=== PATIENT | female | born 1980 | race Caucasian/White ===

== ENCOUNTER 2018-10-16 16:08 | Emergency (ER) | payer SELFPAY ==
[2018-10-16 16:34] VITALS: TEMP 98.4
--- NOTE | 2018-10-16 17:06 | RAD ---
EXAM DESCRIPTION: Lumbar Spine 3 Views CLINICAL HISTORY: 38 years Female, low bakc pain COMPARISON: None available. FINDINGS: The vertebral body heights are well-maintained with no acute compression deformity. The intervertebral disc spaces are well preserved. No evidence of spondylolysis or spondylolisthesis. The visualized prevertebral and paravertebral soft tissues appear grossly unremarkable. IMPRESSION: Normal radiographs of the lumbar spine. Electronically signed by: Alfonzo Reese MD 10/16/2018 5:04 PM [facility]
--- NOTE | 2018-10-16 17:08 | US ---
EXAM DESCRIPTION: Pelvic,Non-OB CLINICAL HISTORY: 38 years Female, pelvic mass with dub COMPARISON: None. FINDINGS: The uterus measures 15.6 x 13.6 x 9.3 cm. There is a 13.5 x 9.3 cm heterogenous mass in the anterior aspect of the body most likely representing a fibroid. The endometrial stripe is displaced and measures 3.6 mm in thickness. Right ovary measures 4.5 x 2.5 x 3.1 cm and the left ovary measures 4.3 x 2.8 x 2.6 cm. Both ovaries appear normal. No free fluid. IMPRESSION: 13.5 x 9.3 cm heterogeneous mass is noted in the anterior aspect of the uterine body most likely representing a fibroid. Electronically signed by: Alfonzo Reese MD 10/16/2018 5:05 PM [facility]
[2018-10-16] MEDS ORDERED: IBUPROFEN 200 MG TAB PO ONE (17:14)
[2018-10-16] MEDS ORDERED: traMADol HCL 50 MG TAB PO ONE (17:14)
[2018-10-16 17:15] VITALS: BP 127/87; O2SAT 97
--- NOTE | 2018-10-16 17:17 | ED.PDOC ---
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 The patient has pain at the right sacroiliac joint that has been present for the last couple of months. She has tenderness to palpation over the area. There is a palpable fluid psychotherapy. Additionally the patient has been having spotting fairly continuously for the last 5 or 6 months. She was told 5 or 6 years ago that she likely has uterine fibroids. She does have a palpable abdominal mass where the uterus would be. It is mobile. She has not had any significant weight loss. He has been quite a while since she has had a Pap smear. Timing/Duration: unsure Severity: moderate Improving Factors: nothing Worsening Factors: nothing Associated Symptoms: denies symptoms Allergies/Adverse Reactions: Allergies NO KNOWN ALLERGY Allergy (Verified 10/16/18 16:25) Home Medications: Ambulatory Orders Tramadol HCl 50 mg PO Q8HR PRN #20 tab 10/16/18 Review of Systems - Review of Systems Constitutional: States: no symptoms reported EENTM: States: no symptoms reported Respiratory: States: no symptoms reported Cardiology: States: no symptoms reported Gastrointestinal/Abdominal: States: abdominal pain Genitourinary: States: see HPI Musculoskeletal: States: back pain Skin: States: no symptoms reported Neurological: States: no symptoms reported Endocrine: States: no symptoms reported All other Systems: No Change from Baseline Past Medical History (General) - Patient Medical History Hx Seizures: No Hx Stroke: No Hx Asthma: No Hx Cardiac Disorders: No Hx Thyroid Disease: No Hx Diabetes: No Surgical History: other - Social History Hx Tobacco Use: Yes Family Medical History - Family History Mother Family History: No Known Physical Exam - Physical Exam General Appearance: Alert, Comfortable, No apparent distress Eye Exam: bilateral normal Ears, Nose, Throat: normal ENT inspection, normal pharynx Neck: full range of motion, supple Respiratory: lungs clear, normal breath sounds, no respiratory distress, no accessory muscle use Cardiovascular/Chest: normal peripheral pulses, regular rate, rhythm, no edema Peripheral Pulses: radial,right: 2+, radial,left: 2+ Gastrointestinal/Abdominal: non tender, soft, other - mass palpablesuprapubically Rectal Exam: deferred, other - pelvic exam shows a mobile cervix. No obvious mass at the cervix. No real cervical motion tenderness. Uterus is significantly enlarged and anteverted. Spotting is seen from the os. Back Exam: no CVA tenderness, other - tenderness to palpation over the right sacroiliac joint. 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 The patient appears to have a 9 x 13 cm fibroid most likely. She needs to follow-up with a harvest contractor of her choice to get what would most likely be a hysterectomy. I would recommend that she take an tqia-ynq-nisjcay iron supplement secondary to her continuous spotting due to this. She is overdue for a Pap smear. Her low back pain appears to be due to inflammation at the right sacroiliac joint. x- rays were reassuring. She can do exercises to strengthen the muscles anterior to the spine to help reduce discomfort from this such as bicycling, rowing or swimming. Some weight loss may help somewhat. Rhwf-trd-zmpghaw anti-infla mmatory such as Motrin or Aleve can also help. She'll be written additionally for some tramadol for when the pain gets at its worst. Stretching exercises can also help. Keep follow-up with gynecology for definitive care of the likely fibroid. - Results/Orders Results/Orders: transabdominal pelvic ultrasound shows a 13 x 9 cm mass most consistent with a f ibroid. X-ray lumbar spine shows no evidence of any significant subluxation or compression fracture. Departure - Departure Clinical Impression: Fibroid, Dysfunctional uterine bleeding Chronic low back pain Qualifiers: Back pain laterality: right Sciatica presence: without sciatica Qualified Code(s): M54.5 - Low back pain; G89.29 - Other chronic pain Disposition: Discharge to Home or Self Care Condition: Fair Departure Forms: ED Discharge - Pt. Copy, Patient Portal Self Enrollment Instructions: Uterine Fibroids (DC), Low Back Pain (DC), Back Exercises Diet: regular diet Activity: increase activity as tolerated Prescriptions: Tramadol HCl 50 mg PO Q8HR PRN #20 tab PRN Reason: Moderate Pain Home Medications: Ambulatory Orders Tramadol HCl 50 mg PO Q8HR PRN #20 tab 10/16/18 Additional Instructions: the patient's a 38-year-old female presenting to the emergency room secondary to low back pain and lower abdominal mass. The patient appears to have a 9 x 13 cm fibroid most likely. She needs to follow-up with a harvest contractor of her choice to get what would most likely be a hysterectomy. I would recommend that she take an epyi-bcs-xaqrwxj iron supplement secondary to her continuous spotting due to this. She is overdue for a Pap smear. Her low back pain appears to be due to inflammation at the right sacroiliac joint. x- rays were reassuring. She can do exercises to strengthen the muscles anterior to the spine to help reduce discomfort from this such as bicycling, rowing or swimming. Some weight loss may help somewhat. Zysz-ymi-rjdpmjz anti- inflammatory such as Motrin or Aleve can also help. She'll be written additionally for some tramadol for when the pain gets at its worst. Stretching exercises can also help. Keep follow-up with gynecology for definitive care of the likely fibroid.
== END 2018-10-16 17:26 | disposition home or self-care (01) ==
LOC: ER 16:08
DX: D25.9 Leiomyoma of uterus, unspecified (principal); N93.8 Other specified abnormal uterine and vaginal bleeding; M54.5 Low back pain; G89.29 Other chronic pain; Z87.891 Personal history of nicotine dependence

== ENCOUNTER 2019-03-27 14:13 | Emergency (ER) | payer SELFPAY ==
[2019-03-27] MEDS ORDERED: KETOROLAC TROMETHAMINE INJ 30 MG/ML VIAL IV ONE (14:26)
[2019-03-27] MEDS ORDERED: SODIUM CHLORIDE 0.9% 1000ML 1,000 ML IVS ONE (14:26)
[2019-03-27] MEDS ORDERED: ONDANSETRON ODT 8 MG TAB SL ONE (14:26)
--- NOTE | 2019-03-27 14:33 | ED.PDOC ---
History of Present Illness - General Chief Complaint: Problem Time Seen by Provider: 03/27/19 14:14 Source: patient Exam Limitations: no limitations - History of Present Illness Initial Comments: patient comes in today for severe pelvic cramping and vaginal bleeding. Patient has suffered with a fibroid uterus for the past several years. 2 years ago the bleeding was significant enough to require blood transfusion. Patient states she had an ultrasound performed earlier this year that showed a fibroid tumor consistent with what she been told in the past. She's been able to have it removed/hysterectomy as she does not have any financial assistance nor insurance. Patient states the bleeding started day before yesterday. She's been bleeding and changing pads approximately every 30 minutes since then. Patient states today she started feeling weak and having nausea and vomiting. Patient has been unable to keep anything down. Patient has no diarrhea but is complaining of abdominal pain. Patient states the pain feels like contractions in her uterus. This pain is the same pain she normally has with menses but much more severe. She has no fever, chills, cough or cold symptoms. She's had no diarrhea, dysuria, or hematuria. Patient does not believe she is secondary to the size of the fibroid uterus. Patient does not believe she ever had any estrogen nor hormones to try to stop the bleeding. She has no past medical history. Her past surgical history is section 2 and pyloric stenosis as a child. 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 Patient drinks alcohol 4-5 times a week. Patient has a longtime tobacco user but currently Vapes. Timing/Duration: other - this is day 3 Quality: severe, cramping Onset Location: suprapubic - pelvic Radiation: none, back Prior abdominal problems: none Improving Factors: nothing Worsening Factors: nothing Associated Symptoms: nausea/vomiting Allergies/Adverse Reactions: Allergies NO KNOWN ALLERGY Allergy (Verified 03/27/19 14:36) Review of Systems - Review of Systems Constitutional: States: weakness. Denies: chills, diaphoresis, fever EENTM: States: no symptoms reported. Denies: eye pain, ear pain, nose congestion, throat pain Respiratory: States: no symptoms reported. Denies: cough, short of breath Cardiology: States: no symptoms reported. Denies: chest pain, palpitations Gastrointestinal/Abdominal: States: abdominal pain, nausea, vomiting. Denies: constipation, diarrhea Genitourinary: States: see HPI Musculoskeletal: States: no symptoms reported Skin: States: no symptoms reported Neurological: States: no symptoms reported Past Medical History (General) - Patient Medical History Hx Seizures: No Hx Stroke: No Hx Asthma: No Hx Cardiac Disorders: No Hx Thyroid Disease: No Hx Diabetes: No - Social History Hx Tobacco Use: Yes Family Medical History - Family History Mother Family History: No Known Physical Exam - Physical Exam General Appearance: Alert, Obvious distress - lying on her side holding her abdomen Eyes, Ears, Nose, Throat Exam: PERRL/EOMI, normal ENT inspection, TMs normal, pharynx normal Neck: non-tender, full range of motion, supple, normal inspection Cardiovascular/Respiratory: regular rate, rhythm, no M/R/G, normal peripheral pulses, no JVD, normal breath sounds Gastrointestinal/Abdominal: normal bowel sounds, non tender - no tenderness to palpation no rebound or guarding , soft, mass - large palpable mass consistent with history Pelvic Exam: external exam normal, speculum exam normal, active bleeding - blood from os but slow and no clots at this time, mass - 16 week uterus Neurologic: alert, oriented x 3 Progress - Progress Progress: 03/27/19 17:06 discussed with patient and she is still bleeding. Will transfer for pot filler consult after her blood is started here. - Results/Orders Results/Orders: 03/27/19 15:31 PRBC [PACKED CELLS,LR] Stat TYPE AND SCREEN Stat Laboratory Results WBC 4.8 K/mm3 (4.8-10.8) 03/27/19 14:45 RBC 3.58 M/mm3 (4.20-5.40) L 03/27/19 14:45 Hgb 5.5 gm/dL (12.0-16.0) L* 03/27/19 14:45 Hct 19.9 % (36.0-47.0) L 03/27/19 14:45 MCV 55.6 fl (81.0-99.0) L 03/27/19 14:45 MCH 15.3 pg (27.0-31.0) L 03/27/19 14:45 MCHC 27.6 g/dL (33.0-37.0) L 03/27/19 14:45 RDW 20.6 % (11.5-14.5) H 03/27/19 14:45 Plt Count 560 K/mm3 (130-400) H 03/27/19 14:45 MPV 8.8 fl (7.40-10.4) 03/27/19 14:45 Absolute Neuts (auto) Not Reportable 03/27/19 14:45 Absolute Lymphs (auto) Not Reportable 03/27/19 14:45 Absolute Monos (auto) Not Reportable 03/27/19 14:45 Absolute Eos (auto) Not Reportable 03/27/19 14:45 Neutrophils % Not Reportable 03/27/19 14:45 Neutrophils % (Manual) 67.0 % (42.0-78.0) 03/27/19 14:45 Lymphocytes % Not Reportable 03/27/19 14:45 Lymphocytes % (Manual) 22.0 % 03/27/19 14:45 Monocytes % Not Reportable 03/27/19 14:45 Monocytes % (Manual) 4.0 % 03/27/19 14:45 Eosinophils % Not Reportable 03/27/19 14:45 Basophils % Not Reportable 03/27/19 14:45 Eosinophils 7.0 % 03/27/19 14:45 Hypochromia 3+ 03/27/19 14:45 Platelet Estimate Increased (NORMAL) 03/27/19 14:45 Poikilocytosis 1+ 03/27/19 14:45 Anisocytosis 2+ 03/27/19 14:45 Microcytosis 3+ 03/27/19 14:45 PT 9.9 SECONDS (9.0-10.9) 03/27/19 14:45 INR 0.99 (0.9-1.15) 03/27/19 14:45 PTT (SP) 21.9 SECONDS (21.8-31.6) 03/27/19 14:45 Sodium 136 mmol/L (135-145) 03/27/19 14:45 Potassium 3.8 mmol/L (3.6-5.0) 03/27/19 14:45 Chloride 105 mmol/L (101-111) 03/27/19 14:45 Carbon Dioxide 21 mmol/L (21-31) 03/27/19 14:45 Anion Gap 13.8 (12-18) 03/27/19 14:45 BUN 9 mg/dL (7-18) 03/27/19 14:45 Creatinine 0.82 mg/dL (0.6-1.3) 03/27/19 14:45 BUN/Creatinine Ratio 11.0 (10-20) 03/27/19 14:45 Random Glucose 94 mg/dL (70-105) 03/27/19 14:45 Serum Osmolality 270.4 mOsm/L (275-295) L 03/27/19 14:45 Calcium 9.2 mg/dL (8.4-10.2) 03/27/19 14:45 Total Bilirubin 0.5 mg/dL (0.2-1.0) 03/27/19 14:45 AST 17 IU/L (10-42) 03/27/19 14:45 ALT 9 IU/L (10-60) L 03/27/19 14:45 Alkaline Phosphatase 37 IU/L (42-121) L 03/27/19 14:45 Serum Total Protein 7.8 gm/dL (6.4-8.2) 03/27/19 14:45 Albumin 4.2 g/dl (3.2-5.5) 03/27/19 14:45 Globulin 3.6 gm/dL (2.3-3.5) H 03/27/19 14:45 Albumin/Globulin Ratio 1.2 (1.1-1.9) 03/27/19 14:45 Serum HCG, Qual Negative (NEGATIVE) 03/27/19 14:45 Crossmatch See Detail 03/27/19 15:31 study from Sep Patient Name: JERRICA PAK Gender: Female Date of : 1980 Referring Physician: Todd Ibarra Organization: [facility] Accession Number: [id number] Requested Date: October 16, 2018 16:29 Report Status: Final Requested Procedure: 1 Procedure Description: Pelvic,Non-OB Modality: US Findings Reporting MD: Alfonzo Reese Fellow MD: Not available Dictation Time: Video Rental Clerk: Not available Commissions Specialist Date: EXAM DESCRIPTION: Pelvic,Non-OB CLINICAL HISTORY: 38 years Female, pelvic mass with dub COMPARISON: None. FINDINGS: The uterus measures 15.6 x 13.6 x 9.3 cm. There is a 13.5 x 9.3 cm heterogenous mass in the anterior aspect of the body most likely representing a fibroid. The endometrial stripe is displaced and measures 3.6 mm in thickness. Right ovary measures 4.5 x 2.5 x 3.1 cm and the left ovary measures 4.3 x 2.8 x 2.6 cm. Both ovaries appear normal. No free fluid. IMPRESSION: 13.5 x 9.3 cm heterogeneous mass is noted in the anterior aspect of the uterine body most likely representing a fibroid. Electronically signed by: Alfonzo Reese MD 10/16/2018 5:05 PM [employer] Departure - Departure Clinical Impression: Fibroid, Dysfunctional uterine bleeding Disposition: Transfer to Hospital Condition: Fair Departure Forms: ED Discharge - Pt. Copy, Patient Portal Self Enrollment Transfer to Outside Facility - Transfer Information Accepting Facility: [facility] Reason for Transfer: specialized care not available
[2019-03-27] MEDS ORDERED: SODIUM CHLORIDE 0.9% 500ML 500 ML ONE (16:29)
[2019-03-27] MEDS ORDERED: MORPHINE SULFATE INJ 10 MG/ML VIAL IV ONE (17:21)
[2019-03-27 18:38] VITALS: BP 116/74; TEMP 98.9; O2SAT 97
== END 2019-03-27 18:25 | disposition short-term general hospital (02) ==
LOC: ER 14:13
DX: N93.8 Other specified abnormal uterine and vaginal bleeding (principal); D25.9 Leiomyoma of uterus, unspecified; R11.2 Nausea with vomiting, unspecified; F17.290 Nicotine dependence, other tobacco product, uncomplicated
CPT/HCPCS: 36415; 80053; 84703; 85025; 85610; 85730; 86922; J1885; J2270; J7030; J7040; P9016